=== PATIENT | male | born 1960 | race Caucasian/White ===

== ENCOUNTER 2022-08-13 15:52 | Emergency (ER) | payer SELFPAY ==
[~2022-08-13] VITALS: Ht 175.3 cm; Wt 78.0 kg
[2022-08-13 16:03] VITALS: BP 173/105
[2022-08-13 16:36] LABS: BASOPHILS % 0.3 % (0.0-2.0); EOSINOPHILS % 0.9 % (0.0-5.0); HEMATOCRIT. 42.8 % (42.0-52.0); HEMOGLOBIN. 14.2 g/dL (14.0-18.0); MEAN CORPUSCULAR VOLUME 93.1 fL (80.0-94.0); MEAN PLATELET VOLUME 8.1 fl (7.4-10.4); MONOCYTES % 6.3 % (2.0-8.0); NEUTROPHILS % 70.5 % (40.0-76.0); PLATELET 256 x1000/uL (130-400); RED BLOOD CELL COUNT 4.59 mill/uL (4.7-6.1); RED CELL DISTRIBUTION WIDTH 14.9 % (11.6-14.6)
[2022-08-13 16:45] LABS: CHLORIDE 106 mEq/L (98-107)
[2022-08-13 16:52] LABS: ETHANOL BLOOD < 10 mg/dL
== END 2022-08-13 18:47 | disposition home or self-care (01) ==
LOC: ER 15:52
DX: T50.7X1A Poisoning by analeptics and opioid receptor antagonists, accidental (unintentional), initial encounter (principal); Y92.89 Other specified places as the place of occurrence of the external cause; R53.1 Weakness; R42 Dizziness and giddiness
CPT/HCPCS: 36415; 80053; 80320; 85025; 99283; G0480